=== PATIENT | female | born 1945 | race Caucasian/White ===

== ENCOUNTER 2021-05-03 13:15 | Emergency (ER) | payer MEDICARE, OTHER ==
--- NOTE | 2021-05-03 13:25 | EDM.PDOC ---
ED HPI GENERAL MEDICAL PROBLEM - General Chief Complaint: Chest Pain Stated Complaint: CHEST PAIN AND BREATHING PROBLEMS Time Seen by Provider: 05/03/21 13:24 Source of Information: Reports: Patient History Limitations: Reports: No Limitations - History of Present Illness INITIAL COMMENTS - FREE TEXT/NARRATIVE: HISTORY AND PHYSICAL: History of present illness: Patient denies any fever, chills, headache, change in vision, syncope or near syncope. Denies any chest pain, back pain, shortness of breath or cough. Denies any abdominal pain, nausea, vomiting, diarrhea, constipation or dysuria. Has not noted any blood in urine or stool. Patient has been eating and drinking appropriately. No recent travel or sick contacts. Review of systems: As per history of present illness and below otherwise all systems reviewed and negative. Past medical history: As per history of present illness and as reviewed below otherwise noncontributory. Surgical history: As per history of present illness and as reviewed below otherwise noncontributory. Social history: See social history for further information Family history: As per history of present illness and as reviewed below otherwise noncontributory. Physical exam: General: Well developed and well nourished. Alert and orientated x 3. Nontoxic in appearance and in no acute distress. Vital signs are stable and have been r eviewed by me. Nursing notes were reviewed. HEENT: Atraumatic, normocephalic, pupils equal and reactive bilaterally, negative for conjunctival pallor or scleral icterus, mucous membranes moist, TMs normal bilaterally, throat clear, neck supple, nontender, trachea midline. No drooling or trismus noted. No meningeal signs. No hot potato voice noted. Lungs: Clear to auscultation bilaterally. No wheezes, rales, or rhonchi. Chest nontender. Normal work of breathing, no accessory muscles used. Heart: S1S2, regular rate and rhythm without overt murmur, gallops, or rubs. No JVD. No peripheral edema Abdomen: Soft, nondistended, nontender. Normoactive bowel sounds. Negative for masses or costovertebral tenderness. Pelvis: Stable nontender. Genitourinary/Rectal: Deferred. Skin: Intact, warm, dry. No lesions or rashes noted. Hematologic: No petechiae or purpra. Mucosa appropriate color and normal nail bed color and refill. Extremities: Atraumatic, moves all extremities per self without difficulty or deficits, negative for cords or calf pain. Neurovascular unremarkable. Neuro: Awake, alert, oriented. Cranial nerves II through XII unremarkable. Cerebellum unremarkable. Motor and sensory unremarkable throughout. Exam nonfocal. Psychiatric: Mood and affect are appropriate. Normal thought process. Answering questions appropriately. Please note that the patient was seen and evaluated during the 2019 SARS-CoV-2 novel coronavirus pandemic period. Community viral transmission is ongoing at time of this encounter and the emergency department is operating under pandemic response procedures. Medical Decision Making: I have talked with the patient about today's findings, in addition to providing specific details for plan of care. Reassessment at the time of disposition demonstrates that the patient is in no acute distress. The patient is stable for discharge, counseling was provided and we discussed in great detail signs and symptoms that would prompt them to return to the Emergency Department. Medication, follow up and supportive care measures were reviewed and discussed. Voices understanding and is agreeable to plan of care. Denies any further questions or concerns at this time. Diagnostics: CBC, CMP, Troponin, EKG, CXR Therapeutics: SL, Aspirin Prescription: Impression: Plan: 1. You were evaluated today on an emergent basis. Your 2. You can alternate Tylenol and ibuprofen as needed for pain and fever management. 3. We encourage you to follow up with your primary care provider and/or recommended specialist in the next few days for re-evaluation and further care/management. 4. If your symptoms should worsen, new symptoms develop or any of the signs and symptoms we discussed should arise please return to the emergency room or call 911 (if needed). Definitive disposition and diagnosis as appropriate pending reevaluation and review of above. Course - Orders/Labs/Meds Orders: Active Orders 24 hr Category Date Time Status EKG Documentation Completion [RC] STAT Care 05/03/21 13:18 Ordered Chest 1V Frontal [CR] Stat Exams 05/03/21 13:18 Ordered CBC WITH AUTO DIFF [HEME] Stat Lab 05/03/21 13:18 Ordered COMPREHENSIVE METABOLIC PN,CMP [CHEM] Stat Lab 05/03/21 13:18 Ordered CORONAVIRUS COVID-19 SHELDON [MOLEC] Stat Lab 05/03/21 13:18 Ordered TROPONIN I [CHEM] Stat Lab 05/03/21 13:18 Ordered Departure - Departure - My Orders Last 24 Hours: My Active Orders 05/03/21 13:18 EKG Documentation Completion [RC] STAT Chest 1V Frontal [CR] Stat CBC WITH AUTO DIFF [HEME] Stat COMPREHENSIVE METABOLIC PN,CMP [CHEM] Stat CORONAVIRUS COVID-19 SHELDON [MOLEC] Stat TROPONIN I [CHEM] Stat - Assessment/Plan Last 24 Hours: My Active Orders 05/03/21 13:18 EKG Documentation Completion [RC] STAT Chest 1V Frontal [CR] Stat CBC WITH AUTO DIFF [HEME] Stat COMPREHENSIVE METABOLIC PN,CMP [CHEM] Stat CORONAVIRUS COVID-19 SHELDON [MOLEC] Stat TROPONIN I [CHEM] Stat
--- NOTE | 2021-05-03 13:48 | CR ---
INDICATION: Chest Pain TECHNIQUE: Chest radiograph 1 view COMPARISON: None FINDINGS: Mediastinum: The mediastinum is normal in appearance. Mild cardiomegaly is present. There is a left cardiac pacer present with leads in the right atrium and right ventricle. Lung: Mild bibasilar subsegmental atelectasis is present. No sign of pleural effusion seen. No pneumothorax is identified. Bone and Soft tissue: Bilateral shoulder arthroplasties are partially visualized. IMPRESSIONS: 1. Mild bibasilar subsegmental atelectasis is present. 2. Mild cardiomegaly is present. Dictated by Jose E Jones MD @ 05/03/2021 1:46:57 PM Dictated by: Jose E Jones MD @ 05/03/2021 13:47:02 (Electronically Signed)
[2021-05-03 14:49] LABS: BLOOD UREA NITROGEN,BUN 26 mg/dL (7.0-18.0); CARBON DIOXIDE,CO2 25.1 mmol/L (21.0-32.0); CHLORIDE,CL 106 mmol/L (98-107); GLUCOSE RANDOM 144 mg/dL (74-106); POTASSIUM,K 4.9 mmol/L (3.5-5.1); SODIUM,NA 143 mmol/L (136-145)
--- NOTE | 2021-05-03 15:47 | EDM.PDOC ---
ED HPI GENERAL MEDICAL PROBLEM - General Chief Complaint: Chest Pain Stated Complaint: CHEST PAIN AND BREATHING PROBLEMS Time Seen by Provider: 05/03/21 13:24 - History of Present Illness INITIAL COMMENTS - FREE TEXT/NARRATIVE: CHIEF COMPLAINT(S): Shortness of breath HISTORY OF PRESENT ILLNESS: This is a 75-year-old woman with a past medical history of CHF, unknown heart block with pacemaker who comes to the emergency department with a chief complaint of shortness of breath. The patient states that off-and-on for the last 1 week she has been experiencing shortness of breath. She states it has become so profound that she can barely walk 5 steps. She denies any chest pain, cough, fever. She states that she is visiting from [place] but her daughter made her come to the emergency department. She denies any increased lower extremity edema and denies any orthopnea. She states that she had the pacemaker placed few years ago for her heart not working. She states that the symptoms feel similar. She denies any syncopal episodes, head injury or loss of consciousness. She denies any trauma to the chest wall. She denies any history of prior DVT or PE. REVIEW OF SYSTEMS: Constitutional: Denies fever, chills. Eyes: Denies eye pain Ears, Nose, Mouth, & Throat: Denies earache Cardiovascular: Denies chest pain, lower extremity edema Respiratory: Positive for shortness of breath and exertional dyspnea. Denies orthopnea. Gastrointestinal: Denies Nausea, vomiting, diarrhea, hematochezia. Genitourinary: Denies hematuria Skin:Denies a rash MSK: Denies joint pain Neurological: Denies blurred vision Psychiatric: Denies depression PAST MEDICAL HISTORY: As per history of present illness and as reviewed below otherwise noncontributory. SURGICAL HISTORY: As per history of present illness and as reviewed below otherwise noncontributory. SOCIAL HISTORY: As per history of present illness and as reviewed below otherwise noncontributory. FAMILY HISTORY: As per history of present illness and as reviewed below otherwise noncontributory. EXAMINATION OF ORGAN SYSTEMS/BODY AREAS: Constitutional: Initial blood pressure was 207/72, heart rate 86, respiratory rate 38 with an oxygen saturation 96% on room air. Temperature 36.1 General: Elderly woman who does not appear to be in acute distress while sitting. Psychiatric: Appropriate mood and affect. Eyes: No scleral icterus or conjunctival erythema ENMT: Moist mucous membranes. No pharyngeal erythema Cardiovascular: Intermittently bradycardic and irregular. No gallops, murmurs, or rubs. Bilateral upper extremity pulses symmetric and intact. No peripheral edema. No JVD. Respiratory: Lungs clear to auscultation bilaterally. No wheezes, rales, or rhonchi. Gastrointestinal: Soft, non-tender, non-distended. Normoactive bowel sounds Genitourinary: No suprapubic tenderness Musculoskeletal: Normal range of motion. Skin: No lesions or abrasions. Neurological: Alert, GCS 15 MEDICAL DECISION MAKING AND COURSE IN THE ED WITH INTERPRETATION/REVIEW OF DIAGNOSTIC STUDIES: This is a 75-year-old man with a past medical history of CHF and pacemaker for uncertain reason who comes to the emergency department with exertional dyspnea when evaluation is lying completely flat and is not dyspneic who does not have any evidence of lower extremity edema on examination. At this time I am concerned about the possibility of pacemaker malfunction. We did obtain an EKG which did reveal an atrial rate in the 30s to 60s. There was still pacing. Given her history the patient will undergo a cardiac work-up. I do believe congestive heart failure is low on the differential given no clinical evidence of heart failure other than exertional dyspnea. Given the duration of her symptoms only 1 troponin is needed. Will obtain a BNP and a chest x-ray. At this time we will attempt to interrogate the patient's pacemaker. Given the unknown reason for the pacemaker we did place pads on the patient given the intermittent bradycardia. The patient's blood pressure continues to be stable therefore we will not need pacing at this time. Cardiac monitoring at this time did reveal a paced rhythm at a rate of 56. Pulse oximetry with good waveform was 96 to 97% on room air. Laboratory: CBC reveals a normocytic anemia with a hemoglobin of 11.2 and hematocrit of 34.4. CMP reveals elevated BUN at 26 and a creatinine of 1.6. Hyperglycemia at 144, hypercalcemia at 10.2, mild elevation in AST at 48, alkaline phosphatase at 206. Troponin is negative. BNP is elevated at 479 which is beneath the threshold for heart failure according to her age group. The radiological images were viewed by myself along with reading the report from the radiologist. Chest x-ray reveals mild basilar subsegmental atelectasis. Mild cardiomegaly. After attempting to contact [employer] obtaining a interrogation report was unsuccessful. We are still waiting for a call back from [employer]. We did contact our cardiology clinic and we did obtain a Latitude machine to evaluate the pacemaker. Given the Latitude machine we were able to interrogate the pacemaker however given that I am not familiar with evaluating the pacemaker via this method I did contact Dr. Saez who is her fast food sales assistant partner and at this time I did review the report on the screen. At this time he recommended that she stop her beta- miguel and I spoke with the nurse practitioner for her fast food sales assistant Dr. Salazar and they will interrogate the device in [place] tomorrow morning. I did discuss this with the patient and daughter at bedside and they are amenable to this plan. They were given strict return precautions. They were amenable discharge and had no further questions DISPOSITION: The patient was discharged home in stable condition. The patient will follow up with cardiology tomorrow morning CONDITION: Fair PROCEDURES: Cardiac monitoring interpretation, pulse oximetry interpretation FINAL IMPRESSION(S)/DIAGNOSES: 1. Acute dyspnea on exertion likely secondary to bradycardia 2. Acute intermittent bradycardia Critical Care Procedure Note Authorized and performed by: Freddy Nazario M.D. Critical Care Time: 46 minutes Due to a high probability of clinically significant, life threatening deterioration, the patient required my highest level of preparedness to intervene emergently and I personally spent this critical care time directly and personally managing the patient. This critical care time included obtaining a history, examining the patient, pulse oximetry; ordering and review of studies; arranging urgent treatment with development of a management plan; evaluation of a patients reponse to treatment; frequent assessment; and discussions with other providers. This critical care time was performed to assess and manage the high probability of imminent, life threatening deterioration that could result in multiorgan failure. It was exclusive of separate billable procedures and treating other patients. Please see MDM section and rest of the note for further information on patient assessment and treatment. Please see MDM section and rest of the note for further information on patient assessment and treatment. Freddy Nazario M.D. - Related Data Allergies Allergy/AdvReac Type Severity Reaction Status Date / Time No Known Allergies Allergy Verified 05/03/21 13:40 Past Medical History - Past Health History Medical/Surgical History: Denies Medical/Surgical History HEENT History: Reports: None Cardiovascular History: Reports: Pacemaker Respiratory History: Reports: None Gastrointestinal History: Reports: None Genitourinary History: Reports: None RELIEF DOCKING MASTER History: Reports: None Neurological History: Reports: None Psychiatric History: Reports: None Endocrine/Metabolic History: Reports: None Hematologic History: Reports: None Immunologic History: Reports: None Oncologic (Cancer) History: Reports: None Dermatologic History: Reports: None - Infectious Disease History Infectious Disease History: Reports: None - Past Surgical History Head Surgeries/Procedures: Reports: None Social & Family History - Family History Family Medical History: No Pertinent Family History - Tobacco Use Tobacco Use Status *Q: Never Tobacco User Second Hand Smoke Exposure: No - Caffeine Use Caffeine Use: Reports: None - Recreational Drug Use Recreational Drug Use: No ED ROS GENERAL - Review of Systems Review Of Systems: See Below ED EXAM, GENERAL - Physical Exam Exam: See Below Course - Vital Signs Last Recorded V/S: Last Vital Signs Temp 36.1 C 05/03/21 13:19 Pulse 43 L 05/03/21 16:22 Resp 15 05/03/21 16:22 BP 187/80 H 05/03/21 16:22 Pulse Ox 96 05/03/21 16:22 - Orders/Labs/Meds Labs: Laboratory Tests 05/03/21 05/03/21 05/03/21 Range/Units 14:04 14:04 14:04 WBC 5.12 (4.0-11.0) K/uL RBC 3.68 L (4.30-5.90) M/uL Hgb 11.2 L (12.0-16.0) g/dL Hct 34.4 L (36.0-46.0) % MCV 93.5 (80.0-98.0) fL MCH 30.4 (27.0-32.0) pg MCHC 32.6 (31.0-37.0) g/dL RDW Std Deviation 50.8 (28.0-62.0) fl RDW Coeff of Silvina 15 (11.0-15.0) % Plt Count 187 (150-400) K/uL MPV 11.00 (7.40-12.00) fL Neut % (Auto) 58.7 (48.0-80.0) % Lymph % (Auto) 29.3 (16.0-40.0) % Shoshone % (Auto) 9.8 (0.0-15.0) % Eos % (Auto) 1.8 (0.0-7.0) % Baso % (Auto) 0.4 (0.0-1.5) % Neut # (Auto) 3.0 (1.4-5.7) K/uL Lymph # (Auto) 1.5 (0.6-2.4) K/uL Shoshone # (Auto) 0.5 (0.0-0.8) K/uL Eos # (Auto) 0.1 (0.0-0.7) K/uL Baso # (Auto) 0.0 (0.0-0.1) K/uL Nucleated RBC % 0.0 /100WBC Nucleated RBCs # 0 K/uL Sodium 143 (136-145) mmol/L Potassium 4.9 (3.5-5.1) mmol/L Chloride 106 (98-107) mmol/L Carbon Dioxide 25.1 (21.0-32.0) mmol/L BUN 26 H (7.0-18.0) mg/dL Creatinine 1.6 H (0.6-1.0) mg/dL Est Cr Clr Drug Dosing 35.00 mL/min Estimated GFR (MDRD) 31.6 ml/min Glucose 144 H (74-106) mg/dL Calcium 10.2 H (8.5-10.1) mg/dL Magnesium 1.9 (1.8-2.4) mg/dL Total Bilirubin 0.7 (0.2-1.0) mg/dL AST 48 H (15-37) IU/L ALT 54 (14-63) IU/L Alkaline Phosphatase 206 H (46-116) U/L Troponin I < 0.050 (0.000-0.056) ng/mL B-Natriuretic Peptide (<100) PG/ML Total Protein 7.3 (6.4-8.2) g/dL Albumin 4.0 (3.4-5.0) g/dL Globulin 3.3 (2.6-4.0) g/dL Albumin/Globulin Ratio 1.2 (0.9-1.6) 05/03/21 Range/Units 14:04 WBC (4.0-11.0) K/uL RBC (4.30-5.90) M/uL Hgb (12.0-16.0) g/dL Hct (36.0-46.0) % MCV (80.0-98.0) fL MCH (27.0-32.0) pg MCHC (31.0-37.0) g/dL RDW Std Deviation (28.0-62.0) fl RDW Coeff of Silvina (11.0-15.0) % Plt Count (150-400) K/uL MPV (7.40-12.00) fL Neut % (Auto) (48.0-80.0) % Lymph % (Auto) (16.0-40.0) % Shoshone % (Auto) (0.0-15.0) % Eos % (Auto) (0.0-7.0) % Baso % (Auto) (0.0-1.5) % Neut # (Auto) (1.4-5.7) K/uL Lymph # (Auto) (0.6-2.4) K/uL Shoshone # (Auto) (0.0-0.8) K/uL Eos # (Auto) (0.0-0.7) K/uL Baso # (Auto) (0.0-0.1) K/uL Nucleated RBC % /100WBC Nucleated RBCs # K/uL Sodium (136-145) mmol/L Potassium (3.5-5.1) mmol/L Chloride (98-107) mmol/L Carbon Dioxide (21.0-32.0) mmol/L BUN (7.0-18.0) mg/dL Creatinine (0.6-1.0) mg/dL Est Cr Clr Drug Dosing mL/min Estimated GFR (MDRD) ml/min Glucose (74-106) mg/dL Calcium (8.5-10.1) mg/dL Magnesium (1.8-2.4) mg/dL Total Bilirubin (0.2-1.0) mg/dL AST (15-37) IU/L ALT (14-63) IU/L Alkaline Phosphatase (46-116) U/L Troponin I (0.000-0.056) ng/mL B-Natriuretic Peptide 479 H (<100) PG/ML Total Protein (6.4-8.2) g/dL Albumin (3.4-5.0) g/dL Globulin (2.6-4.0) g/dL Albumin/Globulin Ratio (0.9-1.6) Departure - Departure Time of Disposition: 15:52 Disposition: Home, Self-Care 01 Condition: Fair Clinical Impression: Bradycardia - Discharge Information *PRESCRIPTION DRUG MONITORING PROGRAM REVIEWED*: No *COPY OF PRESCRIPTION DRUG MONITORING REPORT IN PATIENT MARTHA: No Instructions: Bradycardia, Adult Referrals: PCP,None [Primary Care Provider] - Ori Salazar MD [Ordering Only Provider] - Forms: ED Department Discharge Additional Instructions: You were evaluated today on an emergent basis. In discussion with cardiology Dr. Almaguer who works with Dr. Salazar in [place] recommend you stop your beta- miguel and to not exert yourself this evening or tomorrow. They recommend that you have your pacemaker evaluated tomorrow and the nurse from the pacer clinic will contact you with the details. As discussed if you have any worsening shortness of breath, feel like you're going to pass out or you have any concerns I would like you to return to the emergency department. The patient is informed of any results of their evaluation and diagnostic workup and all questions are answered. They are given discharge instructions and return precautions. The patient is stable for discharge. The patient states they understand and agree with the plan and that they will return if their symptoms get worse or if they have any new concerns. The following information is given to patients seen in the emergency department who are being discharged to home. This information is to outline your options for follow-up care. We provide all patients seen in our emergency department with a follow-up referral. The need for follow-up, as well as the timing and circumstances, are variable depending upon the specifics of your emergency department visit. If you don't have a primary care physician on staff, we will provide you with a referral. We always advise you to contact your personal physician following an emergency department visit to inform them of the circumstance of the visit and for follow-up with them and/or the need for any referrals to a consulting specialist. The emergency department will also refer you to a specialist when appropriate. This referral assures that you have the opportunity for follow-up care with a specialist. All of these measure are taken in an effort to provide you with o ptimal care, which includes your follow-up. Under all circumstances we always encourage you to contact your private physician who remains a resource for coordinating your care. When calling for follow-up care, please make the office aware that this follow-up is from your recent emergency room visit. If for any reason you are refused follow-up, please contact the [facility] Emergency Department at and asked to speak to the emergency department charge nurse. Sepsis Event Note (ED) - Evaluation Sepsis Screening Result: No Definite Risk
--- NOTE | 2021-05-03 17:30 | PCM.EKG ---
#1 Interpretation EKG Date: 05/03/21 Time: 13:20 Rhythm: Other (Atrial paced rhythm) Rate (Beats/Min): 86 Comparison: NA - No Prior EKG EKG Interpretation Comments: Atrial paced rhythm at rate <50 with occasional PVC
== END 2021-05-03 16:20 | disposition home or self-care (01) ==
LOC: MW.ED 13:15
DX: R06.00 Dyspnea, unspecified (principal); R00.1 Bradycardia, unspecified; I50.9 Heart failure, unspecified; Z95.0 Presence of cardiac pacemaker
CPT/HCPCS: 36415; 71045; 71045-26; 80053; 83735; 83880; 84484; 85025; 93005; 99285-25